=== PATIENT | male | born 2000 | race African-American/Black ===

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

== ENCOUNTER 2020-08-09 10:23 | Emergency (ER) | payer SELFPAY ==
--- OUTSIDE RECORDS SUMMARY | 2020-08-09 10:26 | XMS REPORT | Continuity of Care Document ---
:2000 Author Organization [facility] t Address [facility] [place] [address] Care Team Providers Name Role Phone Unavailable Unavailable Unavailable Problems This patient has no known problems. Allergies, Adverse Reactions, Alerts This patient has no known allergies or adverse reactions. Medications This patient has no known medications. Procedures This patient has no known procedures. Results This patient has no known results.
--- NOTE | 2020-08-09 11:04 | EDPHYS ---
Physician Documentation [facility] Name: Watson Leon Age: 20 yrs Sex: Male : 2000 Arrival Date: 08/09/2020 Time: 10:27 Bed 20 Private MD: LAUREL Physician Jamarcus Ramirez HPI: 08/09 10:41 This 20 yrs old Black Male presents to ER via Ambulatory with complaints of Sore cp Throat, Fever. 10:41 The patient presents with sore throat. Onset: The symptoms/episode began/occurred 2 cp day(s) ago. Associated signs and symptoms: Pertinent positives: fever, Pertinent negatives cough, diarrhea, dysphagia, flu-like symptoms, headache, vomiting. Historical: - Allergies: 10:33 No Known Allergies; ca1 - Home Meds: 10:33 None [Active]; ca1 - PMHx: 10:33 CVA; ca1 - PSHx: 10:33 None; ca1 - Immunization history:: Flu vaccine is not up to date. - Social history:: Smoking status: Patient denies any tobacco usage or history of. ROS: 10:42 Eyes: Negative for injury, pain, redness, and discharge. cp 10:42 Constitutional: Negative for body aches, chills, fever, poor PO intake. 10:42 ENT: Positive for sore throat, Negative for drainage from ear(s), ear pain, difficulty swallowing, difficulty handling secretions. 10:42 Neck: Negative for pain with movement, pain at rest, stiffness. 10:42 Cardiovascular: Negative for chest pain. 10:42 Respiratory: Negative for cough, shortness of breath, wheezing. 10:42 Abdomen/GI: Negative for abdominal pain, nausea, vomiting, and diarrhea. 10:42 Skin: Negative for rash. 10:42 Neuro: Negative for altered mental status, headache, weakness. 10:42 All other systems are negative. Exam: 10:45 Head/Face: Normocephalic, atraumatic. cp 10:45 Constitutional: The patient appears in no acute distress, alert, awake, non-toxic, well developed, well nourished. 10:45 Eyes: Periorbital structures: appear normal, Conjunctiva: normal, no exudate, no injection, Sclera: no appreciated abnormality, Lids and lashes: appear normal, bilaterally. 10:45 ENT: External ear(s): are unremarkable, Ear canal(s): are normal, clear, TM's: dullness, bilaterally, Nose: is normal, Mouth: Lips: moist, Oral mucosa: moist, Posterior pharynx: Airway: no evidence of obstruction, patent, Tonsils: with erythema, with exudate, no enlargement, Uvula: midline, erythema, that is moderate, Voice: is normal. 10:45 Neck: ROM/movement: is normal, is supple, no meningismus, no nuchal rigidity, Lymph nodes: lymphadenopathy is appreciated, anterior cervical nodes. 10:45 Chest/axilla: Inspection: normal. cp 10:45 Cardiovascular: Rate: tachycardic. 10:45 Respiratory: the patient does not display signs of respiratory distress, Respirations: normal, no use of accessory muscles, no retractions, labored breathing, is not present. Vital Signs: 10:30 BP 124 / 74; Pulse 105; Resp 16 S; Temp 98; Pulse Ox 99% on R/A; Weight 98.88 kg (R); ca1 Height 5 ft. 11 in. (180.34 cm) (R); Pain 10/10; 10:30 Body Mass Index 30.40 (98.88 kg, 180.34 cm) ca1 MDM: 10:38 Patient medically screened. cp 10:45 Differential diagnosis: epiglottitis, roopa-allen virus, group A strep tonsillitis, cp influenza, laryngitis, mononucleosis, peritonsillar abscess pharyngitis. 11:02 Data reviewed: vital signs, nurses notes, lab test result(s), and as a result, I will cp discharge patient. 08/09 10:35 Order name: Strep ca1 08/09 11:02 Order name: Throat Culture EDMS Administered Medications: No medications were administered Disposition: 08/10 01:16 Co-signature as Attending Physician, Jamarcus Ramirez MD I agree with the assessment and osmin plan of care. Disposition: 08/09/20 11:03 Discharged to Home. Impression: Acute tonsillitis, unspecified. - Condition is Stable. - Discharge Instructions: Tonsillitis. - Prescriptions for Augmentin 875- 125 mg Oral Tablet - take 1 tablet by ORAL route every 12 hours for 10 days; 20 tablet. - Medication Reconciliation Form, Thank You Letter, Antibiotic Education, Prescription Opioid Use form. - Follow up: Private Physician; When: 2 - 3 days; Reason: Worsening of condition. - Problem is new. - Symptoms are unchanged. Signatures: Dispatcher [employer] EDJamarcus Jasmine MD MD cha Page, Corey, PA PA cp Dong, Sima, RN RN ca1 Abril Merino RN RN rb3 Corrections: (The following items were deleted from the chart) 08/09 11:15 11:03 08/09/2020 11:03 Discharged to Home. Impression: Acute tonsillitis, unspecified. rb3 Condition is Stable. Forms are Medication Reconciliation Form, Thank You Letter, Antibiotic Education, Prescription Opioid Use. Follow up: Private Physician; When: 2 - 3 days; Reason: Worsening of condition. Problem is new. Symptoms are unchanged. cp
--- NOTE | 2020-08-09 11:04 | ER ---
Nurse's Notes [facility] Name: Watson Leon Age: 20 yrs Sex: Male : 2000 Arrival Date: 08/09/2020 Time: 10:27 Bed 20 Private MD: Diagnosis: Acute tonsillitis, unspecified Presentation: 08/09 10:30 Chief complaint: Patient states: Sore throat, fever, chills, pus pockets back of throat ca1 started 08/06/2020. Motrin taken at 1000. Had Negative Covid test done yesterday. Coronavirus screen: Client denies travel out of the [place] in the last 14 days. chills, fever, sore throat, Client presents with at least one sign or symptom that may indicate coronavirus-19. Standard/surgical mask placed on the client. Provider contacted for isolation considerations. Ebola Screen: Patient negative for fever greater than or equal to 101.5 degrees Fahrenheit, and additional compatible Ebola Virus Disease symptoms Patient denies exposure to infectious person. Patient denies travel to an Ebola-affected area in the 21 days before illness onset. No symptoms or risks identified at this time. Initial Sepsis Screen: Does the patient meet any 2 criteria? No. Patient's initial sepsis screen is negative. Does the patient have a suspected source of infection? No. Patient's initial sepsis screen is negative. Risk Assessment: Do you want to hurt yourself or someone else? Patient reports no desire to harm self or others. Onset of symptoms was August 06, 2020. 10:30 Method Of Arrival: Ambulatory ca1 10:30 Acuity: SAVANNA 4 ca1 Historical: - Allergies: 10:33 No Known Allergies; ca1 - Home Meds: 10:33 None [Active]; ca1 - PMHx: 10:33 CVA; ca1 - PSHx: 10:33 None; ca1 - Immunization history:: Flu vaccine is not up to date. - Social history:: Smoking status: Patient denies any tobacco usage or history of. Screenin:38 Abuse screen: Denies threats or abuse. Nutritional screening: No deficits noted. rb3 Tuberculosis screening: No symptoms or risk factors identified. Fall Risk None identified. Assessment: 10:38 General: Appears in no apparent distress. comfortable, Behavior is calm, cooperative, rb3 Reports chills for fever for since Tuesday. Pain: Complains of pain in throat. Neuro: Level of Consciousness is awake, alert, obeys commands, Oriented to person, place, time, situation. Respiratory: Airway is patent Respiratory effort is even, unlabored, Respiratory pattern is regular, symmetrical, Breath sounds are clear bilaterally. GI: No signs and/or symptoms were reported involving the gastrointestinal system. : No signs and/or symptoms were reported regarding the genitourinary system. 10:38 EENT: Throat is reddened Reports pain when swallowing. Derm: Skin is dry, Skin is rb3 normal, Skin temperature is warm. 11:14 Reassessment: Patient appears in no apparent distress at this time. No changes from rb3 previously documented assessment. Vital Signs: 10:30 BP 124 / 74; Pulse 105; Resp 16 S; Temp 98; Pulse Ox 99% on R/A; Weight 98.88 kg (R); ca1 Height 5 ft. 11 in. (180.34 cm) (R); Pain 10/10; 10:30 Body Mass Index 30.40 (98.88 kg, 180.34 cm) ca1 ED Course: 10:27 Patient arrived in ED. as 10:33 Triage completed. ca1 10:33 Arm band placed on right wrist. ca1 10:36 Strep Sent. ca1 10:37 Jamarcus Sheth PA is PHCP. cp 10:37 Jamarcus Ramirez MD is Attending Physician. cp 10:38 Patient has correct armband on for positive identification. Bed in low position. Call rb3 light in reach. Side rails up X 1. Pulse ox on. NIBP on. 11:14 No provider procedures requiring assistance completed. Patient did not have IV access rb3 during this emergency room visit. Administered Medications: No medications were administered Outcome: 11:03 Discharge ordered by . cp 11:14 Discharged to home ambulatory. rb3 11:14 Condition: stable 11:14 Discharge instructions given to patient, Instructed on discharge instructions, follow up and referral plans. medication usage, Demonstrated understanding of instructions, follow-up care, medications, Prescriptions given X 1. 11:15 Patient left the ED. rb3 Signatures: Tiffany Kim Audri, RN RN aa5 Jamarcus Sheth PA PA Sima Fox RN RN ca1 Merino, Abril, RN RN rb3 Corrections: (The following items were deleted from the chart) 10:33 10:30 Chief complaint: Patient states: Sore throat, fever, chills, pus pockets back of ca1 throat started 08/06/2020. Motrin taken at 1000. ca1 18:50 10:38 Maris Arce, RN is Primary Nurse. aa5 aa5
[2020-08-09 11:20] VITALS: BP 124/74; TEMP 98; O2SAT 99
== END 2020-08-09 11:15 | disposition home or self-care (01) ==
LOC: ER 10:23
DX: J03.90 Acute tonsillitis, unspecified (principal)
CPT/HCPCS: 87070; 87081; 99283

== ENCOUNTER 2024-01-30 09:59 | Emergency (ER) | payer BC ==
--- OUTSIDE RECORDS SUMMARY | 2024-01-30 10:03 | XMS REPORT | Continuity of Care Document ---
Author Name Unknown Address [address] [place] [address] [facility] thconnect Address [address] [place] [address] Care Team Providers Care General Pediatrician Name Role Phone Pcp, Patient Does Not Have A Primary Care Physic seth KELVIN BRAN III Attending Clinician Unavailkevin Bran III, MD, James C Attending Clinician [phone] Unknown, Attending Attending Clinician Unavailab le Doctor Unassigned, Aldan Attending Clinician U Paola Salmeron Attending Clinician Unavailable Paola Malave Attending Clinician [phone] LIGIA BUTLER Attending Clinician Unavailkevin e Lab, Adc Fam Pob I Attending Clinician Unavailab Ligia Witt Attending Clinician [phone] MARCI LARES Attending Clinician Unavailable Marci Otto Attending Clinician [phone] Payers Payer Name Policy Type Policy Number Effective Date Expirati on Date Source HIM [facility] BLUE ADVANTAGE HMO [id number] 2021 00:00:00 MEDICAID PENDING PENDING 2020 00:00:00 Problems Condition Name Condition Details Condition Category Status Onset Date Resolution Date Last Treatment Date Treating Clinician Comments Source No known active problems No known active problems Disease Univers [facility] Allergies, Adverse Reactions, Alerts Allergy Name Allergy Type Status Severity Reaction(s) Onset Date Inactive Date Treating Clinician Comments Source NO KNOWN ALLERGIE S Drug Class Active [facility] Social History Social Habit Start Date Stop Date Quantity Comments Source Exposure to SARS-CoV-2 (event) 2022-08-10 00:00:00 2022-08-20 09:56:00 Not sure [facility] Alcohol intake 2020-12-16 00:00:00 2020-12-16 00:00:00 [facility] Tobacco use and exposure 2017-02-22 00:00:00 2017-02-22 00:00:00 Smokeless tobacco non-user [facility] Sex Assigned At 2000 00:00:00 2000 00:00:00 [facility] Smoking Status Start Date Stop Date Source Never smoked tobacco [facility] Medications Ordered Medication Name Filled Medication Name Start Date Stop Date Current Medication? Ordering Clinician Indication Dosage Frequency Signature (SIG) Comments Components Source doxycycline monohydrate 100 mg capsule 08-20 00:00: 00 Yes [id number] 100mg Take 1 capsule by mouth in the morning and 1 capsule in the evening. [facility] amoxicillin 500 mg capsule 6-16 00:00: 00 11-16 04:59 :00 No [id number] 500mg Take 1 capsule by mouth 3 (three) times daily for 10 days. [facility] amoxicillin 500 mg capsule 12-16 00:00: 00 12-27 04:59 :00 No [id number] 1000mg Take 2 capsules by mouth daily for 10 days. [facility] aspirin 81 mg chewable tablet 06-30 19:49: 56 Yes 81mg Take 81 mg by mouth. [facility] DIPHENHYDRA MINE HCL (CHILDREN'S BENADRYL ALLERGY ORAL) 06-30 19:49: 23 Yes 10mL Take 10 mL by mouth. [facility] naproxen sodium (ALEVE) 220 mg tablet 06-30 19:49: 23 Yes 220mg Take 220 mg by mouth 2 (two) times daily with meals. [facility] aspirin 81 mg chewable tablet 06-30 13:49: 56 Yes 81mg Take 81 mg by mouth. [facility] DIPHENHYDRA MINE HCL (CHILDREN'S BENADRYL ALLERGY ORAL) 06-30 13:49: 23 Yes 10mL Take 10 mL by mouth. [facility] naproxen sodium (ALEVE) 220 mg tablet 06-30 13:49: 23 Yes 220mg Take 220 mg by mouth 2 (two) times daily with meals. [facility] Vital Signs Vital Name Observation Time Observation Value Comments S doug Systolic blood pressure 2022-08-20 15:29:00 130 mm[Hg] [facility] Diastolic blood pressure 2022-08-20 15:29:00 77 mm[Hg] [facility] Heart rate 2022-08-20 15:29:00 90 /min [facility] Body temperature 2022-08-20 15:29:00 36.83 Gaby [facility] Respiratory rate 2022-08-20 15:29:00 18 /min [facility] Body height 2022-08-20 15:29:00 180.3 cm [facility] Body weight 2022-08-20 15:29:00 107.729 kg [facility] BMI 2022-08-20 15:29:00 33.12 kg/m2 [facility] Oxygen saturation in Arterial blood by Pulse oximetry 2022-08-20 15:29:00 98 /min [facility] Diastolic blood pressure 2021-11-05 19:50:00 71 mm[Hg] [facility] Heart rate 2021-11-05 19:50:00 98 /min Unive [facility] Body temperature 2021-11-05 19:50:00 37.61 Gaby [facility] Respiratory rate 2021-11-05 19:50:00 18 /min [facility] Body height 2021-11-05 19:50:00 180.3 cm [facility] Body weight 2021-11-05 19:50:00 99.791 kg [facility] BMI 2021-11-05 19:50:00 30.68 kg/m2 [facility] Oxygen saturation in Arterial blood by Pulse oximetry 2021-11-05 19:50:00 99 /min [facility] Systolic blood pressure 2021-11-05 19:50:00 163 mm[Hg] [facility] Systolic blood pressure 2020-12-16 23:00:00 160 mm[Hg] [facility] Diastolic blood pressure 2020-12-16 23:00:00 95 mm[Hg] [facility] Heart rate 2020-12-16 23:00:00 99 /min [facility] Body temperature 2020-12-16 23:00:00 38 Gaby [facility] Respiratory rate 2020-12-16 23:00:00 16 /min [facility] Oxygen saturation in Arterial blood by Pulse oximetry 2020-12-16 23:00:00 98 /min [facility] Body weight 2020-12-16 22:16:00 90.719 kg [facility] Procedures Procedure Date / Time Performed Performing Clinicia n Source CONSENT/REFUSAL FOR DIAGNOSIS AND TREATMENT 2022-08-20 14:56:44 Doctor Unassigned, Aldan [facility] CONSENT/REFUSAL FOR DIAGNOSIS AND TREATMENT 2021-11-05 19:43:10 Doctor Unassigned, Aldan [facility] COVID-19 (ID NOW RAPID TESTING) 2020-12-16 22:32:00 Marci Lares [facility] RAPID STREP SCREEN FOR GROUP A 2020-12-16 22:26:00 Marci Lares [facility] NOTICE OF PRIVACY PRACTICES 2020-12-16 22:10:03 Doctor Unassigned, Aldan [facility] CONSENT/REFUSAL FOR DIAGNOSIS AND TREATMENT 2020-12-16 22:09:35 Doctor Unassigned, Aldan [facility] Encounters Start Date/Time End Date/Time Encounter Type Admission Type Attending [facility] Care Department Encounter ID Source 2022-08-20 10:00:00 2022-08-20 10:48:54 Outpatient KELVIN INMAN III [facility] [id number] [facility] 2022-08-20 10:00:00 2022-08-20 10:48:54 Urgent Care Shant Kelvin Petty Unknown, Attending [facility] STEFANIE?[facility] 1.114 [id number] [id number] [id number] [facility] 2022-08-20 00:00:00 2022-08-20 00:00:00 Orders Only Doctor Unassigned, Aldan [facility] 1.114 [id number] [id number] [facility] 2021-11-05 14:52:00 2021-11-05 15:37:00 Emergency X Paola OLSEN [facility] ERT [id number] [facility] 2021-11-05 14:52:00 2021-11-05 15:37:00 Emergency Paola Olsenge [facility] 1.114 [id number] [id number] [facility] 2021-07-14 16:30:00 2021-07-14 16:38:12 Outpatient LIGIA RAYMUNDO [facility] [id number] [facility] 2021-01-04 00:00:00 2021-01-04 00:00:00 Outpatient FBCOVID F[facility]OVID [id number] [facility] 2020-12-26 20:20:00 2020-12-26 20:20:00 Outpatient LIGIA RAYMUNDO [facility] [id number] [facility] 2020-12-26 19:53:44 2020-12-26 20:13:44 Laboratory Only Lab, [facility] 1.114 [id number] [id number] [facility] 2020-12-26 00:00:00 2020-12-26 00:00:00 Letter (Out) Doctor Unassigned, Aldan [facility] [id number] [id number] [id number] [id number] [facility] 2020-12-26 00:00:00 2020-12-26 00:00:00 Letter (Out) Doctor Unassigned, Aldan [facility] [id number] [id number] [id number] [id number] [facility] 2020-12-16 17:18:00 2020-12-16 18:39:00 Emergency X MARCI LARES [facility] ERT [id number] [facility] 2020-12-16 17:18:00 2020-12-16 18:39:00 Emergency Marci Lares S [facility] [id number] [facility] 2019-12-30 15:04:00 2019-12-30 15:05:41 Inpatient HCABM NCER [id number] [facility] Results Test Description Test Time Test Comments Results Result Co mments Source [facility] GROUP [id number] 22:49:23* Test Item Value Reference Range Interpretation Comme nts Streptococcus pyogenes (grou p A) antigen (test code = 44833-1) Positive Negative A Lab Interpretation (test cod e = 31162-5) Abnormal [facility]
[2024-01-30] MEDS ORDERED: TETRACAINE HCL 0.5% 4ML OPTH ONE (10:35)
[2024-01-30] MEDS ORDERED: FLUORESCEIN SODIUM 1 MG/WRAP ONE ×2 (10:35→10:39)
--- NOTE | 2024-01-30 11:07 | EDPHYS ---
Physician Documentation [facility] Name: Watson Leon Age: 23 yrs Sex: Male : 2000 Arrival Date: 01/30/2024 Time: 09:59 Bed 18 Private MD: ED Physician Navneet Arias HPI: 01/29 11:30 This 23 yrs old Black Male presents to ER via Ambulatory with complaints of Eye Problem.rt 11:30 Patient presents to the ED with a bilateral eye pain, described as an itchy scratching rt sensation with scant discharge, left worse than right. Denies blurred vision, double vision. Denies other acute complaints at this time, symptoms are mild in severity, no other aggravating or alleviating factors.. Historical: - Allergies: 10:14 No Known Allergies; cm10 - Home Meds: 10:14 None [Active]; cm10 - PMHx: 10:14 CVA; cm10 - PSHx: 10:14 None; cm10 - Immunization history:: Adult Immunizations up to date. - Infectious Disease History:: Denies. - Social history:: Smoking status: unknown. - Family history:: not pertinent. ROS: 11:30 Constitutional: Negative for fever, chills, and weight loss, Cardiovascular: Negative rt for chest pain, palpitations, and edema, Respiratory: Negative for shortness of breath, cough, wheezing, and pleuritic chest pain, Abdomen/GI: Negative for abdominal pain, nausea, vomiting, diarrhea, and constipation, Skin: Negative for injury, rash, and discoloration, Neuro: Negative for headache, weakness, numbness, tingling, and seizure, 11:30 Eyes: Positive for pain, redness, Exam: 11:30 Constitutional: This is a well developed, well nourished patient who is awake, alert, rt and in no acute distress. Head/Face: Normocephalic, atraumatic. Chest/axilla: Normal chest wall appearance and motion. Nontender with no deformity. No lesions are appreciated. Cardiovascular: Regular rate and rhythm with a normal S1 and S2. No gallops, murmurs, or rubs. Normal PMI, no JVD. No pulse deficits. Respiratory: Lungs have equal breath sounds bilaterally, clear to auscultation and percussion. No rales, rhonchi or wheezes noted. No increased work of breathing, no retractions or nasal flaring. Abdomen/GI: Soft, non-tender, with normal bowel sounds. No distension or tympany. No guarding or rebound. No evidence of tenderness throughout. Skin: Warm, dry with normal turgor. Normal color with no rashes, no lesions, and no evidence of cellulitis. MS/ Extremity: Pulses equal, no cyanosis. Neurovascular intact. Full, normal range of motion. 11:30 Eyes: Bilateral conjunctival injection, no discharge noted, no areas of fluorescein uptake. Vital Signs: 10:13 BP 156 / 96; Pulse 81; Resp 16; Temp 99; Pulse Ox 100% on R/A; Weight 101.6 kg; Height cm10 6 ft. 0 in. ; Pain 7/10; 11:20 BP 158 / 88; Pulse 82; Resp 18; Temp 98.5; Pulse Ox 99% ; db 10:13 Body Mass Index 30.38 (101.60 kg, 182.88 cm) cm10 10:13 Pain Scale: Adult cm10 MDM: 10:22 Patient medically screened. rt 11:30 Differential diagnosis: Conjunctivitis, corneal abrasion. Data reviewed: vital signs, rt nurses notes. Counseling: I had a detailed discussion with the patient and/or guardian regarding the historical points, exam findings, and any diagnostic results supporting the discharge/admit diagnosis, the need for outpatient follow up, to return to the emergency department if symptoms worsen or persist or if there are any questions or concerns that arise at home. Response to treatment: the patient's symptoms have mildly improved after treatment. 01/29 10:29 Order name: Eye Tray; Complete Time: 10:46 rt 01/29 10:29 Order name: Fluoresene Opth strip; Complete Time: 10:46 rt Administered Medications: 10:46 Drug: Tetracaine Ophthalmic Drops 0.5 % 1 drops Ophthalmic once {Note: GIVEN TO db PROVIDER.} Route: Ophthalmic; Site: both eyes; 11:20 Follow up: Response: No adverse reaction db Disposition Summary: 01/30/24 11:06 Discharge Ordered Notes: Location: Home rt Problem: new rt Symptoms: have improved rt Condition: Stable rt Diagnosis - Unspecified acute conjunctivitis, bilateral rt Followup: rt - With: Private Physician - When: 5 - 6 days - Reason: Discharge Instructions: - Discharge Summary Sheet rt - How to Use Eye Drops and Eye Ointments rt - Viral Conjunctivitis, Adult rt Forms: - Medication Reconciliation Form rt - Antibiotic Education rt - Prescription Opioid Use rt - Patient Portal Instructions rt - Leadership Thank You Letter rt Prescriptions: - Erythromycin 5 mg/gram (0.5 %) Ophthalmic ointment - apply 1 ribbon OPHTHALMIC route every 8 hours Please dispense QS for 7 days; 1 rt Each; Refills: 0, Product Selection Permitted Signatures: Danita Schmidt RN RN db Navneet Arias MD MD rt Zulma Kim RN RN cm10
--- NOTE | 2024-01-30 11:07 | ER ---
Nurse's Notes [facility] Name: Watson Leon Age: 23 yrs Sex: Male : 2000 Arrival Date: 01/30/2024 Time: 09:59 Bed 18 Private MD: Diagnosis: Unspecified acute conjunctivitis, bilateral Presentation: 01/29 10:13 Chief complaint: Patient states: bilateral eye itching and eye pressure onset Frdiay. cm10 Coronavirus screen: Client denies travel out of the [place] in the last 14 days. At this time, the client does not indicate any symptoms associated with coronavirus-19. Ebola Screen: Patient denies travel to an Ebola-affected area in the 21 days before illness onset. No symptoms or risks identified at this time. Initial Sepsis Screen: Does the patient meet any 2 criteria? No. Patient's initial sepsis screen is negative. Does the patient have a suspected source of infection? No. Patient's initial sepsis screen is negative. Risk Assessment: Do you want to hurt yourself or someone else? Patient reports no desire to harm self or others. Onset of symptoms was January 30, 2024. 10:13 Method Of Arrival: Ambulatory cm10 10:13 Acuity: SAVANNA 4 cm10 Triage Assessment: 10:14 General: Appears in no apparent distress. comfortable, Behavior is calm, cooperative. cm10 Pain: Complains of pain in right eye and left eye. Neuro: No deficits noted. Level of Consciousness is awake, alert, obeys commands, Oriented to person, place, time, situation, Appropriate for age. Respiratory: No deficits noted. Airway is patent Respiratory effort is even, unlabored, Respiratory pattern is regular, symmetrical. Historical: - Allergies: 10:14 No Known Allergies; cm10 - Home Meds: 10:14 None [Active]; cm10 - PMHx: 10:14 CVA; cm10 - PSHx: 10:14 None; cm10 - Immunization history:: Adult Immunizations up to date. - Infectious Disease History:: Denies. - Social history:: Smoking status: unknown. - Family history:: not pertinent. Screenin:20 [facility] ED Fall Risk Assessment (Adult) History of falling in the last 3 months, db including since admission No falls in past 3 months (0 pts) Confusion or Disorientation No (0 pts) Intoxicated or Sedated No (0 pts) Impaired Gait No (0 pts) Mobility Assist Device Used No (0 pt) Altered Elimination No (0 pt) Score/Fall Risk Level 0 - 2 = Low Risk Oriented to surroundings, Maintained a safe environment. Abuse screen: Denies threats or abuse. Denies injuries from another. Nutritional screening: No deficits noted. Tuberculosis screening: No symptoms or risk factors identified. Assessment: 10:46 Reassessment: Patient appears in no apparent distress at this time. Patient and/or db family updated on plan of care and expected duration. Pain level reassessed. Patient is alert, oriented x 3, equal unlabored respirations, skin warm/dry/pink. EYE SUPPLIES AT PATIENT BEDSIDE. General: Appears in no apparent distress. comfortable, Behavior is calm, cooperative. Pain: Complains of pain in right eye and left eye. Respiratory: Airway is patent Respiratory effort is even, unlabored, Respiratory pattern is regular, symmetrical. EENT: Eyes are tearing on left eye and right eye. 11:20 Reassessment: Patient appears in no apparent distress at this time. Patient and/or db family updated on plan of care and expected duration. Pain level reassessed. Patient is alert, oriented x 3, equal unlabored respirations, skin warm/dry/pink. Vital Signs: 10:13 BP 156 / 96; Pulse 81; Resp 16; Temp 99; Pulse Ox 100% on R/A; Weight 101.6 kg; Height cm10 6 ft. 0 in. ; Pain 7/10; 11:20 BP 158 / 88; Pulse 82; Resp 18; Temp 98.5; Pulse Ox 99% ; db 10:13 Body Mass Index 30.38 (101.60 kg, 182.88 cm) cm10 10:13 Pain Scale: Adult cm10 ED Course: 10:01 Patient arrived in ED. jj6 10:14 Triage completed. cm10 10:14 Arm band placed on Patient placed in an exam room, on a stretcher. cm10 10:15 Navneet Arias MD is Attending Physician. rt 10:17 Danita Schmidt, CATHY is Primary Nurse. db 11:20 Patient has correct armband on for positive identification. Bed in low position. Call db light in reach. Side rails up X 1. Provided Education on: DISCHARGE. 11:20 Pulse ox on. Pillow given. db 11:20 No provider procedures requiring assistance completed. Patient did not have IV access db during this emergency room visit. Administered Medications: 10:46 Drug: Tetracaine Ophthalmic Drops 0.5 % 1 drops Ophthalmic once {Note: GIVEN TO db PROVIDER.} Route: Ophthalmic; Site: both eyes; 11:20 Follow up: Response: No adverse reaction db Medication: 11:20 VIS not applicable for this client. db Outcome: 11:06 Discharge ordered by . rt 11:20 Discharged to home ambulatory, db 11:20 Condition: stable 11:20 Discharge instructions given to patient, Instructed on discharge instructions, follow up and referral plans. Prescriptions given X 1, 11:29 Patient left the ED. db Signatures: Debbie Veraj6 Danita Schmidt, RN RN db Navneet Arias MD MD rt Zulma Kim RN RN cm10
[2024-01-30 11:34] VITALS: BP 156/96; TEMP 99; O2SAT 100
== END 2024-01-30 11:29 | disposition home or self-care (01) ==
LOC: ER 09:59
DX: H10.33 Unspecified acute conjunctivitis, bilateral (principal)
CPT/HCPCS: 99284